=== PATIENT | female | born 2005 | race Caucasian/White ===

== ENCOUNTER 2024-04-06 06:15 | Day surgery (SDC) | payer OTHER ==
[2024-04-05 16:00] VITALS: BMI 37.9
[2024-04-06] MEDS ORDERED: Midazolam HCl 2 mg/2 ml Vial ONE ×2 (06:54→07:24)
[2024-04-06] MEDS ORDERED: fentaNYL 50 mcg/mL 1 mL Vial ONE ×5 (06:54→09:36)
[2024-04-06] MEDS ORDERED: PROPOFOL 20 ML ONE (06:54)
[2024-04-06] MEDS ORDERED: Rocuronium Bromide 10 MG/ML (10ML VIAL) ONE (06:54)
[2024-04-06] MEDS ORDERED: Bupivacaine/Epinephrine 0.25% 30 ML VIAL ONE (06:59)
[2024-04-06] MEDS ORDERED: Sevoflurane 250 ML INH ANEST BOTTLE ONE (07:08)
[2024-04-06] MEDS ORDERED: ceFOXitin 1 GM VIAL ONE (07:17)
[2024-04-06] MEDS ORDERED: Iopamidol 30 ML ONE (07:53)
[2024-04-06] MEDS ORDERED: Ketorolac Tromethamine 30 MG (1 mL) VIAL ONE (08:04)
[2024-04-06] MEDS ORDERED: SUGAMMADEX SODIUM 200 MG/2 ML VIAL ONE (08:54)
[2024-04-06] MEDS ORDERED: Ondansetron PF 4 MG/2 ML Vial ONE (09:13)
[2024-04-06] MEDS ORDERED: HYDROcodone/Acetaminophen 5/325 mg Tablet ONE (10:00)
== END 2024-04-06 10:40 | disposition home or self-care (01) ==
LOC: CSHSDC 06:15
PROVIDERS: ATTEND Surgery
PROC: 0FT44ZZ Resection of Gallbladder, Percutaneous Endoscopic Approach (ICD-10-PCS; principal; 2024-04-06)
PROC: BF12YZZ Fluoroscopy of Gallbladder using Other Contrast (ICD-10-PCS; principal; 2024-04-06)
DX: K80.10 Calculus of gallbladder with chronic cholecystitis without obstruction (principal); K80.44 Calculus of bile duct with chronic cholecystitis without obstruction; E66.9 Obesity, unspecified; Z68.37 Body mass index [BMI] 37.0-37.9, adult; Z88.1 Allergy status to other antibiotic agents; Z79.899 Other long term (current) drug therapy
CPT/HCPCS: 74018; 88304; C1889; C1894; J0694; J1885; J2250; J2405; J2704; J3010; Q9967; S2900